=== PATIENT | female | born 1995 | race Caucasian/White ===

== ENCOUNTER 2017-05-12 17:22 | Emergency (ER) | payer BC, MEDICAID ==
[2017-05-12 17:28] VITALS: BP 151/86
--- NOTE | 2017-05-12 18:10 | UC ---
Back Pain HPI - HPI Summary HPI Summary: Low back pain starting yesterday, now feeling up and down her back beside her spine on both sides. For 3-4 days prior to pain had diarrhea that has now resolved, also had nausea yesterday during the day, made herself eat something and then she threw up. This is not typical, though pt had gallbladder out and occasionally gets sick to her stomach when she overeats. Denies fever, urinary sx, blood in stool. - History of Current Complaint Chief Complaint: UCBackPain Stated Complaint: LOWER BACK PAIN Time Seen by Provider: 05/12/17 17:45 Hx Obtained From: Patient Hx Last Menstrual Period: 04/21/17 ?: No Onset/Duration: Gradual Onset, Lasting Days Timing: Constant Severity Initially: Mild Severity Currently: Moderate Back Pain: Is Diffuse Character: Dull, Aching, Stiffness Aggravating: Movement Alleviating: Rest Associated Signs And Symptoms: Negative: Weakness, Numbness, Abdominal Pain, Bladder Incontinence, Bowel Incontinence - Allergies/Home Medications Allergies/Adverse Reactions: Allergies Allergy/AdvReac Type Severity Reaction Status Date / Time Amoxicillin Allergy Unknown Hives Verified 05/12/17 17:28 Home Medications: Home Medications Ibuprofen TAB* [Advil TAB*] 800 mg PO PRN 05/12/17 [History] PMH/Surg Hx/FS Hx/Imm Hx Cardiovascular History: Hypertension GI/ History: Gall Bladder Disease - had GB removed - Surgical History Surgical History: Yes Surgery Procedure, Year, and Place: gallbladder Nov 2014 - Family History Known Family History: Negative: Blood Disorder - Social History Occupation: Employed Full-time Lives: With Family Alcohol Use: Rare Alcohol Amount: on Substance Use Type: None Smoking Status (MU): Never Smoked Tobacco Type: Cigarettes Amount Used/How Often: Smokes couples of time throughout week Have You Smoked in the Last Year: No When Did the Patient Quit Smoking/Using Tobacco: "years ago" - Immunization History Most Recent Influenza Vaccination: 08/2015 Most Recent Tetanus Shot: 08/20/15 Most Recent Pneumonia Vaccination: n/a Review of Systems Constitutional: Negative Skin: Negative Eyes: Negative ENT: Negative Respiratory: Negative Cardiovascular: Negative Gastrointestinal: Vomiting, Diarrhea Genitourinary: Negative Motor: Negative Neurovascular: Negative Musculoskeletal: Myalgia - back pain Neurological: Negative Psychological: Negative All Other Systems Reviewed And Are Negative: Yes Physical Exam Triage Information Reviewed: Yes Appearance: Well-Appearing, No Pain Distress, Obese Vital Signs: Initial Vital Signs Temp 98.2 F 05/12/17 17:25 Pulse 89 05/12/17 17:25 Resp 16 05/12/17 17:25 BP 151/86 05/12/17 17:25 Pulse Ox 100 05/12/17 17:25 Vital Signs Reviewed: Yes Eye Exam: Normal Eyes: Positive: Conjunctiva Clear ENT Exam: Normal ENT: Positive: Normal ENT inspection, Hearing grossly normal, Pharynx normal Dental Exam: Normal Neck exam: Normal Neck: Positive: Supple, Nontender, No Lymphadenopathy Respiratory Exam: Normal Respiratory: Positive: Chest non-tender, Lungs clear, Normal breath sounds, No respiratory distress, No accessory muscle use Cardiovascular Exam: Normal Cardiovascular: Positive: RRR, No Murmur Abdomen Description: Positive: Nontender, No Organomegaly, Soft. Negative: CVA Tenderness (R), CVA Tenderness (L), Distended, Guarding Bowel Sounds: Positive: Present Musculoskeletal Exam: Normal Musculoskeletal: Positive: Strength Intact Neurological Exam: Normal Neurological: Positive: Alert Psychological Exam: Normal Skin Exam: Normal Back Pain Course/Dx - Differential Dx/Diagnosis Provider Diagnoses: muscle strain low and mid back Discharge - Discharge Plan Condition: Stable Disposition: HOME Patient Education Materials: Low Back Strain (ED), Hematuria (ED) Additional Instructions: There were trace blood cells in your urine and a culture has been sent. Since you don't have any traditional UTI symptoms I am not treating you with an antibiotic. Apply warm packs to your sore muscles and take ibuprofen 400-600mg three times per day until your pain improves. If you are not getting better within a week, please see your primary care provider. If you have any sudden worsening, fever, or other new symptom, please return here. Even with trace hematuria it is best to have your primary care provider recheck your urine in 2 weeks to make sure the blood has gone away. This is a common, and usually temporary, finding is many healthy adults and adolescents.
== END 2017-05-12 18:10 | disposition home or self-care (01) ==
LOC: UCEAST 17:22
DX: S39.012A Strain of muscle, fascia and tendon of lower back, initial encounter (principal); S29.012A Strain of muscle and tendon of back wall of thorax, initial encounter; X58.XXXA Exposure to other specified factors, initial encounter; Y93.9 Activity, unspecified; Y92.9 Unspecified place or not applicable; Z32.02 Encounter for pregnancy test, result negative; I10 Essential (primary) hypertension; E66.9 Obesity, unspecified; Z90.49 Acquired absence of other specified parts of digestive tract; Z88.1 Allergy status to other antibiotic agents
CPT/HCPCS: 81003; 84702; 87086; 99211; G0463

== ENCOUNTER 2017-05-16 11:05 | Emergency (ER) | payer BC ==
[2017-05-16] MEDS ORDERED: NS 0.9% 1000 ML* 1,000 ML IV ONE (14:00)
[2017-05-16] MEDS ORDERED: Ketorolac INJ* 30 MG/ML 1 ML VIAL IV ONE (14:00)
[2017-05-16 14:29] LABS: Urine Bacteria Absent (Absent); Urine Bilirubin Negative (Negative); Urine Glucose Negative (Negative); Urine Nitrite Negative (Negative)
--- NOTE | 2017-05-16 14:37 | RAD ---
Indication: Right flank pain. CT of the abdomen and pelvis was performed without oral or IV contrast administration. Coronal and sagittal reconstructed images were obtained. Lung bases demonstrate no pleural fluid, nodules or masses. Heart is of normal size without evidence of pericardial effusion. The liver is normal in size. No focal lesions or intrahepatic ductal dilatation is noted. The patient is status post cholecystectomy. The common duct is not dilated. The pancreas demonstrates no mass or pancreatic duct dilatation. The spleen is normal in size. No adrenal lesions are noted. The kidneys demonstrates no hydronephrosis. No retroperitoneal lymphadenopathy is noted. No dilated loops of bowel are noted. Aorta and vena cava are unremarkable. No evidence of retroperitoneal or pelvic lymphadenopathy is noted. CT of the pelvis demonstrates stool throughout the colon. Normal appendix is noted. No dilated loops of bowel are noted. There is a small to moderate amount of free fluid in the cul-de-sac. The uterus and ovaries are grossly unremarkable. The urinary bladder is unremarkable. IMPRESSION: NO EVIDENCE OF OBSTRUCTIVE UROPATHY IS NOTED. NORMAL APPENDIX. SMALL TO MODERATE AMOUNT OF FREE FLUID IS NOTED IN THE CUL-DE-SAC. PATIENT IS STATUS POST CHOLECYSTECTOMY.
[2017-05-16 14:52] LABS: Hematocrit 41 % (35-47); Hemoglobin 13.5 g/dl (12.0-16.0); Mean Corpuscular HGB Conc 33 g/dl (31-36); Mean Corpuscular Hemoglobin 28 pg (27-31); Mean Corpuscular Volume 86 fL (80-97); Mean Platelet Volume 9 um3 (7.4-10.4); Red Blood Count 4.77 10^6/ul (4.0-5.4); Red Cell Distribution Width 14 % (10.5-15); White Blood Count 8.4 10^3/ul (3.5-10.8)
[2017-05-16 15:05] LABS: ALT 16 U/L (7-52); AST 17 U/L (13-39); Albumin 4.7 g/dL (3.2-5.2); Alkaline Phosphatase 77 U/L (34-104); Anion Gap 7 mmol/L (2-11); BUN/Creatinine Ratio 13.6 (8-20); Blood Urea Nitrogen 9 mg/dL (6-24); C Reactive Protein 3.05 mg/L (< 5.00); CO2 Carbon Dioxide 25 mmol/L (22-32); Calcium 9.6 mg/dL (8.6-10.3); Chloride 106 mmol/L (101-111); EGFR African American 142.7 (>60); Globulin 3.1 g/dL (2-4); Glucose 91 mg/dL (70-100); Lipase 15 U/L (11.0-82.0); Potassium 4.1 mmol/L (3.5-5.0); Sodium 138 mmol/L (133-145); Total Protein 7.8 g/dL (6.4-8.9)
[2017-05-16 16:48] VITALS: BP 133/69
--- NOTE | 2017-05-16 18:55 | ED ---
Cricket Vega Thomas, scribed for Isaiah Wilkins MD on 05/16/17 at 1355 . Back Pain - HPI Summary HPI Summary: The pt is a 21 y/o F presenting to the ED c/o bilateral flank pain (R>L) that began 5 days ago. The pain began with a dull quality but is now characterized as sharp. The pain is is rated 9.5/10 when she breathes but otherwise is 6/10. Her pain is exacerbated with movement and deep breaths. She took ibuprofen 600 mg at 0200 to relieve the pain. She also took Bengay to relieve the pain. She additionally c/o dysuria, "drip-drop" urination, and thick white discharge. She denies a PMHx of kidney stones. PSHx: cholecystectomy. SHx: rare alcohol use, no drug use. FHx: HTN. - History of Current Complaint Chief Complaint: EDBackInjuryPain Stated Complaint: LOWER BACK PAIN-5DAYS Time Seen by Provider: 05/16/17 13:51 Hx Obtained From: Patient Hx Last Menstrual Period: 04/21/17 Onset/Duration: Lasting Days - 5 days, Still Present Timing: Constant Back Pain Location: Is Discrete @ - flank Pain Intensity: 6 Pain Scale Used: 0-10 Numeric Character: Sharp - especially when she breathes, Dull - initially Associated Signs And Symptoms: Positive: Flank Pain, Other - POS: dysuria, "drip -drop" urination, thick white discharge - Allergies/Home Medications Allergies/Adverse Reactions: Allergies Allergy/AdvReac Type Severity Reaction Status Date / Time Amoxicillin Allergy Unknown Hives Verified 05/16/17 11:20 PMH/Surg Hx/FS Hx/Imm Hx Previously Healthy: No Cardiovascular History: Reports: Hx Hypertension - GESTATIONAL, Other Cardiovascular Problems/Disorders - Gestation HTN during delivered in Jul 2014 GI History: Reports: Hx Gall Bladder Disease - Began after , Other GI Disorders - Current gallstone pancreatitis History: Denies: Hx Kidney Stones Musculoskeletal History: Reports: Hx Back Problems - After Jul 2014 Denies: Hx Scoliosis Sensory History: Reports: Hx Contacts or Glasses - Uses glasses when driving Denies: Hx Hearing Aid Opthamlomology History: Reports: Hx Contacts or Glasses - Uses glasses when driving Neurological History: Denies: Hx Headaches, Other Neuro Impairments/Disorders - Surgical History Surgery Procedure, Year, and Place: gallbladder Nov 2014 Infectious Disease History: No Infectious Disease History: Denies: Hx Clostridium Difficile, Hx Hepatitis, Hx Human Immunodeficiency Virus (HIV), Hx of Known/Suspected MRSA, Hx Shingles, Hx Tuberculosis, Hx Known/ Suspected VRE, Hx Known/Suspected VRSA, History Other Infectious Disease, Traveled Outside the [place] in Last 30 Days - Family History Known Family History: Positive: Hypertension Negative: Blood Disorder - Social History Alcohol Use: Rare Alcohol Amount: on Substance Use Type: Reports: None Smoking Status (MU): Never Smoked Tobacco Type: Cigarettes Amount Used/How Often: Smokes couples of time throughout week Have You Smoked in the Last Year: No Review of Systems Constitutional: Negative Negative: Fever Eyes: Negative ENT: Negative Cardiovascular: Negative Respiratory: Negative Gastrointestinal: Negative Genitourinary: Other - POS: "drip-drop" urination Positive: dysuria, discharge - thick white, flank pain - bilat, R>L, at first dull but now sharp, 9.5/10 when breathing but 6/10 baseline Musculoskeletal: Negative Skin: Negative Neurological: Negative Psychological: Normal All Other Systems Reviewed And Are Negative: Yes Physical Exam - Summary Physical Exam Summary: VITAL SIGNS: Reviewed. GENERAL: ~Patient is a well-developed and nourished female who is in the stretcher and in some distress secondary to pain. Patient is not in any acute respiratory distress. HEAD AND FACE: No signs of trauma. ~No ecchymosis, hematomas or skull depressions. No sinus tenderness. EYES: PERRLA, EOMI x 2, No injected conjunctiva, no nystagmus. EARS: Hearing grossly intact. Ear canals and tympanic membranes are within normal limits. MOUTH: Oropharynx within normal limits. NECK: Supple, trachea is midline, no adenopathy, no JVD, no carotid bruit, no c- spine tenderness, neck with full ROM. CHEST: Symmetric, no tenderness at palpation LUNGS: Clear to auscultation bilaterally. No wheezing or crackles. CVS: Regular rate and rhythm, S1 and S2 present, no murmurs or gallops appreciated. ABDOMEN: CVA tenderness. Soft, non-tender. No signs of distention. No rebound no guarding, and no masses palpated. Bowel sounds are normal. EXTREMITIES: FROM in all major joints, no edema, no cyanosis or clubbing. NEURO: Alert and oriented x 3. No acute neurological deficits. Speech is normal and follows commands. SKIN: Dry and warm Triage Information Reviewed: Yes Vital Signs On Initial Exam: Initial Vitals Temp Pulse Resp BP Pulse Ox 99.4 F 96 18 154/95 99 05/16/17 11:20 05/16/17 11:20 05/16/17 11:20 05/16/17 11:20 05/16/17 11:20 Vital Signs Reviewed: Yes Diagnostics - Vital Signs Vital Signs Temp Pulse Resp BP Pulse Ox 05/16/17 11:20 99.4 F 96 18 154/95 99 - Laboratory Lab Results: Lab Results 05/16/17 05/16/17 05/16/17 Range/Units 14:10 14:36 14:36 WBC 8.4 (3.5-10.8) 10^3/ul RBC 4.77 (4.0-5.4) 10^6/ul Hgb 13.5 (12.0-16.0) g/dl Hct 41 (35-47) % MCV 86 (80-97) fL MCH 28 (27-31) pg MCHC 33 (31-36) g/dl RDW 14 (10.5-15) % Plt Count 175 (150-450) 10^3/ul MPV 9 (7.4-10.4) um3 Neut % (Auto) 65.4 (38-83) % Lymph % (Auto) 25.3 (25-47) % Clare % (Auto) 5.5 (1-9) % Eos % (Auto) 3.2 (0-6) % Baso % (Auto) 0.6 (0-2) % Absolute Neuts (auto) 5.5 (1.5-7.7) 10^3/ul Absolute Lymphs (auto) 2.1 (1.0-4.8) 10^3/ul Absolute Monos (auto) 0.5 (0-0.8) 10^3/ul Absolute Eos (auto) 0.3 (0-0.6) 10^3/ul Absolute Basos (auto) 0.1 (0-0.2) 10^3/ul Absolute Nucleated RBC 0 10^3/ul Nucleated RBC % 0 Sodium 138 (133-145) mmol/L Potassium 4.1 (3.5-5.0) mmol/L Chloride 106 (101-111) mmol/L Carbon Dioxide 25 (22-32) mmol/L Anion Gap 7 (2-11) mmol/L BUN 9 (6-24) mg/dL Creatinine 0.66 (0.51-0.95) mg/dL Est GFR ( Amer) 142.7 (>60) Est GFR (Non-Af Amer) 111.0 (>60) BUN/Creatinine Ratio 13.6 (8-20) Glucose 91 (70-100) mg/dL Lactic Acid (0.5-2.0) mmol/L Calcium 9.6 (8.6-10.3) mg/dL Total Bilirubin 0.50 (0.2-1.0) mg/dL AST 17 (13-39) U/L ALT 16 (7-52) U/L Alkaline Phosphatase 77 (34-104) U/L C-Reactive Protein 3.05 (< 5.00) mg/L Total Protein 7.8 (6.4-8.9) g/dL Albumin 4.7 (3.2-5.2) g/dL Globulin 3.1 (2-4) g/dL Albumin/Globulin Ratio 1.5 (1-3) Lipase 15 (11.0-82.0) U/L Beta HCG, Quant < 0.60 mIU/mL Urine Color Yellow Urine Appearance Cloudy Urine pH 5.0 (5-9) Ur Specific [place] 1.026 (1.010-1.030) Urine Protein Negative (Negative) Urine Ketones Negative (Negative) Urine Blood Negative (Negative) Urine Nitrate Negative (Negative) Urine Bilirubin Negative (Negative) Urine Urobilinogen Negative (Negative) Ur Leukocyte Esterase 2+ H (Negative) Urine WBC (Auto) Trace(0-5/hpf) (Absent) Urine RBC (Auto) Absent (Absent) Ur Squamous Epith Cells Present H (Absent) Urine Bacteria Absent (Absent) Urine Glucose Negative (Negative) Urine Ascorbic Acid * H (Negative) 05/16/17 Range/Units 14:36 WBC (3.5-10.8) 10^3/ul RBC (4.0-5.4) 10^6/ul Hgb (12.0-16.0) g/dl Hct (35-47) % MCV (80-97) fL MCH (27-31) pg MCHC (31-36) g/dl RDW (10.5-15) % Plt Count (150-450) 10^3/ul MPV (7.4-10.4) um3 Neut % (Auto) (38-83) % Lymph % (Auto) (25-47) % Clare % (Auto) (1-9) % Eos % (Auto) (0-6) % Baso % (Auto) (0-2) % Absolute Neuts (auto) (1.5-7.7) 10^3/ul Absolute Lymphs (auto) (1.0-4.8) 10^3/ul Absolute Monos (auto) (0-0.8) 10^3/ul Absolute Eos (auto) (0-0.6) 10^3/ul Absolute Basos (auto) (0-0.2) 10^3/ul Absolute Nucleated RBC 10^3/ul Nucleated RBC % Sodium (133-145) mmol/L Potassium (3.5-5.0) mmol/L Chloride (101-111) mmol/L Carbon Dioxide (22-32) mmol/L Anion Gap (2-11) mmol/L BUN (6-24) mg/dL Creatinine (0.51-0.95) mg/dL Est GFR ( Amer) (>60) Est GFR (Non-Af Amer) (>60) BUN/Creatinine Ratio (8-20) Glucose (70-100) mg/dL Lactic Acid 0.6 (0.5-2.0) mmol/L Calcium (8.6-10.3) mg/dL Total Bilirubin (0.2-1.0) mg/dL AST (13-39) U/L ALT (7-52) U/L Alkaline Phosphatase (34-104) U/L C-Reactive Protein (< 5.00) mg/L Total Protein (6.4-8.9) g/dL Albumin (3.2-5.2) g/dL Globulin (2-4) g/dL Albumin/Globulin Ratio (1-3) Lipase (11.0-82.0) U/L Beta HCG, Quant mIU/mL Urine Color Urine Appearance Urine pH (5-9) Ur Specific [place] (1.010-1.030) Urine Protein (Negative) Urine Ketones (Negative) Urine Blood (Negative) Urine Nitrate (Negative) Urine Bilirubin (Negative) Urine Urobilinogen (Negative) Ur Leukocyte Esterase (Negative) Urine WBC (Auto) (Absent) Urine RBC (Auto) (Absent) Ur Squamous Epith Cells (Absent) Urine Bacteria (Absent) Urine Glucose (Negative) Urine Ascorbic Acid (Negative) Result Diagrams: 05/16/17 14:36 05/16/17 14:36 Lab Statement: Any lab studies that have been ordered have been reviewed, and results considered in the medical decision making process. - CT CT Abd/Pel CT Interpretation: No Acute Changes - NO EVIDENCE OF OBSTRUCTIVE UROPATHY IS NOTED. NORMAL APPENDIX. SMALL TO MODERATE AMOUNT OF FREE FLUID IS NOTED IN THE CUL-DE-SAC. PATIENT IS STATUS POST CHOLECYSTECTOMY. CT Interpretation Completed By: Radiologist Back Pain Course/Dx - Course Assessment/Plan: The pt is a 21 y/o F presenting to the ED c/o bilateral flank pain (R>L) that began 5 days ago. The pain began with a dull quality but is now characterized as sharp. The pain is is rated 9.5/10 when she breathes but otherwise is 6/10. Her pain is exacerbated with movement and deep breaths. She took ibuprofen 600 mg at 0200 to relieve the pain. She also took Bengay to relieve the pain. She additionally c/o dysuria, "drip-drop" urination, and thick white discharge. She denies a PMHx of kidney stones. PSHx: cholecystectomy. SHx: rare alcohol use, no drug use. FHx: HTN. Test results are within normal limits. UA was contaminated. CT Abd/Pel revealed NO EVIDENCE OF OBSTRUCTIVE UROPATHY IS NOTED. NORMAL APPENDIX. SMALL TO MODERATE AMOUNT OF FREE FLUID IS NOTED IN THE CUL-DE-SAC. PATIENT IS STATUS POST CHOLECYSTECTOMY.. In the ED course, the pt was given IV fluids and toradol for the pain. After these meds were given, the symptoms resolved. The patient was offered a pelvic exam, but she states that because she reports to vaginal discharge or bleeding, she will decline the pelvic exam. Therefore, we will send the urine for culture and discharge with follow-up with PCP. I suspect the pain is coming from the back. The patient was therefore given naproxen and robaxin for the pain. I discussed all the findings and test results with the patient. Patient was instructed to return to the emergency room immediately if any of the symptoms return or worsens. They were explained the possibility of an early abdominal pathology which was not detected at this time despite the physical exam and testing. They understand and agree. Abdominal exam before discharge: Soft, NT. No signs of distention. BS present. No rebound no guarding , and no masses palpated. Patient is alert and oriented and hemodynamically stable. Patient is to follow up with primary care physician in the next 2 to 3 days. Patient agree and understands. - Diagnoses Differential Diagnosis/HQI/PQRI: Positive: Fracture, Renal Colic, Strain, Sprain Provider Diagnoses: Back pain Discharge - Discharge Plan Condition: Stable Disposition: HOME Prescriptions: Methocarbamol [Robaxin-750 MG TAB] 750 mg PO TID #12 tab Naproxen TAB* [Naprosyn 250 mg TAB*] 500 mg PO Q8H PRN #20 tab PRN Reason: Pain Patient Education Materials: Back Pain (ED) Referrals: [facility] [place] PHYSICIAN REFERRAL [Outside] - 3 Days The documentation as recorded by the Cricket tomlinson Thomas accurately reflects the service I personally performed and the decisions made by me, Isaiah Wilkins MD.
--- NOTE | 2017-05-18 09:32 | ED ---
Progress - Progress Note Progress Note: Pt's urine cx reveals 10-25,000 enterococcus faecalis (mild UTI). Will await sens - no tx at this time. Course/Dx - Diagnoses Provider Diagnoses: Back pain
--- NOTE | 2017-05-19 14:29 | PN ---
Progress Note - Progress Note Date of Service: 05/16/17 Note: Urine preliminary did show 10-25,000 of growth however final urine culture results came back mixed lorie, possible contamination. suggest resubmission. Was not given antbiotics at discharge. Called and spoke with at 2:28pm today and patient states symptoms have completely improved and she is feeling much better. No need for further change or action at this time.
== END 2017-05-16 16:46 | disposition home or self-care (01) ==
LOC: ED 11:05
DX: M54.9 Dorsalgia, unspecified (principal); R10.84 Generalized abdominal pain; R30.0 Dysuria
CPT/HCPCS: 36415; 74176; 80053; 81003; 81015; 83605; 83690; 84702; 85025; 86140; 87086; 96374; 99283; J1885

== ENCOUNTER 2017-07-01 09:39 | Emergency (ER) | payer BC ==
--- NOTE | 2017-07-01 12:40 | ED ---
Cricket Vega Thomas, scribed for Layla Trejo MD on 07/01/17 at 1154 . Skin Complaint - HPI Summary HPI Summary: The pt is a 22 y/o F presenting to the ED c/o an abscess on her right buttock that she first noticed 5 days ago. The pt rates the pain 8/10. The pain is aggravated by pressure and alleviated by nothing. 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 The cyst has grown in the last 5 days. She was evaluated at [facility] urgent care 3 days ago, where she was prescribed Bactrim. She is on her 3rd day of Bactrim. Pt additionally c/o fever (100.9). Pt denies drainage. PMHx: HTN. PSHx: cholecystectomy. SHx: no smoking, no alcohol use, no illicit drug use. She is accompanied by her mother in the examination room. - History of Current Complaint Chief Complaint: EDRashSkinAbscess Time Seen by Provider: 07/01/17 11:13 Stated Complaint: POSS INFECTION ON RT BUTT CHEEK Hx Obtained From: Patient, Family/Arranger Assembler - mother present Hx Last Menstrual Period: 04/21/17 Onset/Duration: Started Days Ago - 5, Still Present, Worse Since - 3 days ago Timing: Constant Pain Intensity: 8 Pain Scale Used: 0-10 Numeric Skin Location: Other: - right buttock Aggravating Symptom(s): Other: - POS: pressure Alleviating Symptom(s): Nothing Associated Signs & Symptoms: Negative - for drainage, Fever - 100.9 - Allergy/Home Medications Allergies/Adverse Reactions: Allergies Allergy/AdvReac Type Severity Reaction Status Date / Time Amoxicillin Allergy Unknown Hives Verified 05/16/17 11:20 PMH/Surg Hx/FS Hx/Imm Hx Previously Healthy: No Cardiovascular History: Reports: Hx Hypertension - GESTATIONAL, Other Cardiovascular Problems/Disorders - Gestation HTN during delivered in Jul 2014 GI History: Reports: Hx Gall Bladder Disease - Began after , Other GI Disorders - Current gallstone pancreatitis History: Denies: Hx Kidney Stones Musculoskeletal History: Reports: Hx Back Problems - After Jul 2014 Denies: Hx Scoliosis Sensory History: Reports: Hx Contacts or Glasses - Uses glasses when driving Denies: Hx Hearing Aid Opthamlomology History: Reports: Hx Contacts or Glasses - Uses glasses when driving Neurological History: Denies: Hx Headaches, Other Neuro Impairments/Disorders - Surgical History Surgery Procedure, Year, and Place: gallbladder Nov 2014 Infectious Disease History: Denies: Hx Clostridium Difficile, Hx Hepatitis, Hx Human Immunodeficiency Virus (HIV), Hx of Known/Suspected MRSA, Hx Shingles, Hx Tuberculosis, Hx Known/ Suspected VRE, Hx Known/Suspected VRSA, History Other Infectious Disease, Traveled Outside the [place] in Last 30 Days - Family History Known Family History: Positive: Hypertension Negative: Blood Disorder - Social History Alcohol Use: None Alcohol Amount: on Substance Use Type: Reports: None Smoking Status (MU): Never Smoked Tobacco Type: Cigarettes Amount Used/How Often: Smokes couples of time throughout week Have You Smoked in the Last Year: No Review of Systems Positive: Fever - 100.9 Positive: Other - POS: abscess on R buttock; NEG: drainage All Other Systems Reviewed And Are Negative: Yes Physical Exam Triage Information Reviewed: Yes Vital Signs On Initial Exam: Initial Vitals Temp Pulse Resp BP Pulse Ox 99.5 F 98 15 151/82 100 07/01/17 10:07/01/17 10:02 07/01/17 10:02 07/01/17 10:02 07/01/17 10:02 Vital Signs Reviewed: Yes Appearance: Positive: Well-Appearing, No Pain Distress Skin: Positive: Warm, Skin Color Reflects Adequate Perfusion, Dry, Other - There is a pilonidal cyst 2cm in circumference on the right side just towards the right buttock. Eyes: Positive: EOMI, LENORA ENT: Positive: Pharynx normal, TMs normal Neck: Positive: Supple, Nontender Respiratory/Lung Sounds: Positive: Clear to Auscultation, Breath Sounds Present. Negative: Rales, Rhonchi, Wheezes Cardiovascular: Positive: RRR. Negative: Murmur, Rub, Other - NEG: gallop Abdomen Description: Positive: Nontender, Soft. Negative: Distended, Guarding, Other: - NEG: rebound Bowel Sounds: Positive: Present Musculoskeletal: Positive: Strength/ROM Intact. Negative: Edema Left, Edema Right Neurological: Positive: Sensory/Motor Intact, Alert, Oriented to Person Place, Time, CN Intact II-III Psychiatric: Positive: Affect/Mood Appropriate Procedures - Incision and Drainage Site: Right buttock Anesthesia: Topical Instrument(s): Scalpel Packing: Gauze - ended up making 2 2cm incision no pus no drainage. Diagnostics - Vital Signs Vital Signs Temp Pulse Resp BP Pulse Ox 07/01/17 11:08 99.5 F 98 15 151/82 99 07/01/17 10:02 99.5 F 98 15 151/82 100 - Laboratory Lab Statement: Any lab studies that have been ordered have been reviewed, and results considered in the medical decision making process. Course/Dx - Course Course Of Treatment: pilonidal cyst that must have been too early for I&D ended up making two small insicions no pus pocket pt advised that their are 2 likely further scenarios with her cont'd sitz baths and bactrim antibiotics 1) acscess will clear 2) abscess will continue to ripen and either rupture or be ready for and I and D pt was given followup with the surgeons for further care. she is going out of town for the weekend, and knows that she can go to any ED to have it I and D'd if it becomes a problem Assessment/Plan: The patient complains of an abscess on her right buttock that she first noticed 5 days ago. She denies drainage, and this was evaluated at [facility] 3 days ago. In the ED course an incision and drainage was performed. Patient is diagnosed with pilonidal cyst. Patient will be discharged home with follow up by PCP. Patient is agreeable to this plan. - Diagnoses Provider Diagnoses: Pilonidal cyst Discharge - Discharge Plan Condition: Stable Disposition: HOME Patient Education Materials: Pilonidal Cyst (ED) Referrals: [facility] [place] PHYSICIAN REFERRAL [Outside] - 3 Days The documentation as recorded by the Cricket tomlinson Thomas accurately reflects the service I personally performed and the decisions made by me, Layla Trejo MD.
[2017-07-01 13:05] VITALS: BP 132/69
== END 2017-07-01 13:05 | disposition home or self-care (01) ==
LOC: ED 09:39
DX: L05.91 Pilonidal cyst without abscess (principal); Z88.0 Allergy status to penicillin
CPT/HCPCS: 10080; 99282

== ENCOUNTER 2017-07-02 14:10 | Emergency (ER) | payer BC ==
[2017-07-02 15:04] LABS: Hematocrit 38 % (35-47); Hemoglobin 12.8 g/dl (12.0-16.0); Mean Corpuscular HGB Conc 34 g/dl (31-36); Mean Corpuscular Hemoglobin 28 pg (27-31); Mean Corpuscular Volume 82 fL (80-97); Mean Platelet Volume 9 um3 (7.4-10.4); Red Blood Count 4.64 10^6/ul (4.0-5.4); Red Cell Distribution Width 13 % (10.5-15); White Blood Count 10.4 10^3/ul (3.5-10.8)
[2017-07-02] MEDS ORDERED: Clindamycin 900 MG IVPREMIX(* 900 MG/50 ML SDV IV ONE (15:15)
[2017-07-02] MEDS ORDERED: Ketorolac INJ* 30 MG/ML 1 ML VIAL IV PUSH ONE (15:16)
[2017-07-02] MEDS ORDERED: Ondansetron INJ* 2 MG/ML VIAL IV ONE (15:16)
[2017-07-02 15:19] LABS: Albumin 4.4 g/dL (3.2-5.2); BUN/Creatinine Ratio 11.6 (8-20); EGFR African American 104.3 (>60); EGFR Non-African American 81.1 (>60); Globulin 3.3 g/dL (2-4); Potassium 4.1 mmol/L (3.5-5.0); Total Bilirubin 0.7 mg/dL (0.2-1.0); Total Protein 7.7 g/dL (6.4-8.9)
[2017-07-02 15:23] LABS: Urine Bacteria Absent (Absent); Urine Bilirubin Negative (Negative); Urine Glucose Negative (Negative); Urine Nitrite Negative (Negative)
[2017-07-02] MEDS ORDERED: NS 0.9% 1000 ML* 2,000 ML IV ONE (15:27)
--- NOTE | 2017-07-02 16:10 | RAD ---
Indication: Shortness of breath. 2 views of the chest including dual energy PA views demonstrate no mediastinal shift. Heart is of normal size and configuration. Lungs are clear. No changes noted since December 12, 2011. IMPRESSION: No active cardiopulmonary disease is identified.
[2017-07-02] MEDS ORDERED: Iohexol 350* (CONTRAST) 500 ML MDV IV ONE (17:07)
--- NOTE | 2017-07-02 17:24 | RAD ---
Indication: Fever, shortness of breath. Contrast: Administered 86.0 ml of OMNIPAQUE 350 mg/ml CTA of the chest was performed after IV contrast administration. Coronal and sagittal reconstructed images were obtained. Inferior thyroid lobes are unremarkable. The point arterial tree is adequately opacified. No definite filling defect is noted to suggest pulmonary embolus. Aorta demonstrates no evidence of aortic dissection or aneurysmal dilatation. The trachea and major bronchi appear patent. The lung pantoja demonstrate dependent changes with no evidence of alveolar consolidation. The visualized bony structures are unremarkable. The abdominal organs are grossly unremarkable. IMPRESSION: No definite pulmonary embolus is noted. No definite aortic dissection is noted.
[2017-07-02 18:01] VITALS: BP 111/46
--- NOTE | 2017-07-05 09:18 | PN ---
Progress Note - Progress Note Date of Service: 07/02/17 Note: wound final culture results obtained. 1+ of normal lorie grew, no other organisms seen. patient was given clindamycin for pilonidal abscess at d/c. no further changes needed at this time.
--- NOTE | 2017-07-11 12:05 | ED ---
Cricket Vega Thomas, scribed for Shai Landry MD on 07/02/17 at 1444 . Skin Complaint - HPI Summary HPI Summary: The pt is a 22 y/o F presenting to the ED c/o fever at 104.5 with a pilonidal cyst that appeared five days ago. It was lanced by Dr. Trejo yesterday but was unable to be drained, so Dr. Trejo advised that she follow up with surgery. The patient saw Dr. Sharma this AM and her cyst was successfully drained and packed. She is also on Day 4 of a course of antibiotics initially prescribed four days ago [place] [facility] She has not recently taken an antipyretic. She rates her pain level 2/10. The pain is aggravated and alleviated by nothing. The patient has treated the pain with pain medication prior to arrival including [place], which has relieved pain. Pt additionally c/o dizziness, feelings of illness, SOB (onset yesterday, none in the ED and only when standing ), weakness, and nausea. Pt denies cough, vomiting, sore throat, CP, dysuria, and hematuria. She denies any chronic anxiety. LNMP 06/21/17. She had a pilonidal cyst 5 years ago. She reports that Dr. Sharma advised against any surgeries in the near term. There is not a FHx of blood clots. - History of Current Complaint Chief Complaint: EDGeneral Stated Complaint: FEVER,PAIN,SOB Hx Obtained From: Patient, Family/Business Mgr - mother in room Hx Last Menstrual Period: 04/21/17 Onset/Duration: Started Days Ago - 5, Still Present, Worse Since - this AM Timing: Constant Pain Intensity: 2 Pain Scale Used: 0-10 Numeric Skin Location: Other: - Pilonidal cyst Aggravating Symptom(s): Nothing Alleviating Symptom(s): Nothing Associated Signs & Symptoms: Nausea, Weakness, Fever - 104.5, Lightheadedness Related History: Other: - Lanced yesterday and drained today - Allergy/Home Medications Allergies/Adverse Reactions: Allergies Allergy/AdvReac Type Severity Reaction Status Date / Time Amoxicillin Allergy Unknown Hives Verified 05/16/17 11:20 PMH/Surg Hx/FS Hx/Imm Hx Previously Healthy: No Cardiovascular History: Reports: Hx Hypertension - GESTATIONAL, Other Cardiovascular Problems/Disorders - Gestation HTN during delivered in Jul 2014 GI History: Reports: Hx Gall Bladder Disease - Began after , Other GI Disorders - Current gallstone pancreatitis History: Denies: Hx Kidney Stones Musculoskeletal History: Reports: Hx Back Problems - After Jul 2014 Denies: Hx Scoliosis Sensory History: Reports: Hx Contacts or Glasses - Uses glasses when driving Denies: Hx Hearing Aid Opthamlomology History: Reports: Hx Contacts or Glasses - Uses glasses when driving Neurological History: Denies: Hx Headaches, Other Neuro Impairments/Disorders - Surgical History Surgery Procedure, Year, and Place: gallbladder Nov 2014 Infectious Disease History: Denies: Hx Clostridium Difficile, Hx Hepatitis, Hx Human Immunodeficiency Virus (HIV), Hx of Known/Suspected MRSA, Hx Shingles, Hx Tuberculosis, Hx Known/ Suspected VRE, Hx Known/Suspected VRSA, History Other Infectious Disease, Traveled Outside the [place] in Last 30 Days - Family History Known Family History: Positive: Hypertension Negative: Blood Disorder, Other - NEG: blood clots - Social History Alcohol Use: None Alcohol Amount: on Substance Use Type: Reports: None Smoking Status (MU): Never Smoked Tobacco Type: Cigarettes Amount Used/How Often: Smokes couples of time throughout week Have You Smoked in the Last Year: No Review of Systems Positive: Fever - Tmax 104.5, Other - POS: feelings of illness. Negative: Chills Negative: Erythema - eyes Negative: Sore Throat Negative: Chest Pain Positive: Shortness Of Breath - onset yesterday, none in the ED and only when she stands. Negative: Cough Positive: Nausea. Negative: Abdominal Pain, Vomiting Negative: dysuria, hematuria Negative: Myalgia, Edema - leg Negative: Rash Neurological: Other - NEG: dizziness Positive: Weakness All Other Systems Reviewed And Are Negative: Yes Physical Exam - Summary Physical Exam Summary: Constitutional: Well-developed, Well-nourished, Alert. (-) Distressed Skin: Warm, Dry HENT: Normocephalic; Atraumatic Eyes: Conjunctiva normal Neck: Musculoskeletal ROM normal neck. (-) JVD, (-) Stridor, (-) Tracheal deviation Cardio: Rhythm regular, rate normal, Heart sounds normal; Intact distal pulses; The pedal pulses are 2+ and symmetric. Radial pulses are 2+ and symmetric. (-) Murmur Pulmonary/Chest wall: Effort normal. (-) Respiratory distress, (-) Wheezes, (-) Rales Abd: Soft, (-) Tenderness, (-) Distension, (-) Guarding, (-) Rebound Musculoskeletal: (-) Edema Lymph: (-) Cervical adenopathy Neuro: Alert, Oriented x3 Psych: Mood and affect Normal She has a pilonidal cyst status post incision and drainage. There is minimal induration at its superior aspect. Triage Information Reviewed: Yes Vital Signs On Initial Exam: Initial Vitals Temp Pulse Resp BP Pulse Ox 104.5 F 127 20 153/76 97 07/02/17 14:17 07/02/17 14:17 07/02/17 14:17 07/02/17 14:17 07/02/17 14:17 Vital Signs Reviewed: Yes Diagnostics - Vital Signs Vital Signs Temp Pulse Resp BP Pulse Ox 07/02/17 14:17 104.5 F 127 20 153/76 97 - Laboratory Result Diagrams: 07/02/17 14:47 07/02/17 14:47 Lab Statement: Any lab studies that have been ordered have been reviewed, and results considered in the medical decision making process. - Radiology CXR Xray Interpretation: No Acute Changes - CXR reveals no active cardiopulmonary disease is noted. ED physician has reviewed this radiology report and agrees. Radiology Interpretation Completed By: Radiologist - CT CTA Chest CT Interpretation: No Acute Changes - CTA Chest reveals No definite pulmonary embolus is noted. No definite aortic dissection is noted. ED physician has read this report and agrees. CT Interpretation Completed By: Radiologist Course/Dx - Course Assessment/Plan: The pt is a 22 y/o F presenting to the ED c/o fever at 104.5 with a pilonidal cyst that appeared five days ago. It was lanced by Dr. Trejo yesterday but was unable to be drained, so Dr. Trejo advised that she follow up with surgery. The patient saw Dr. Sharma this AM and her cyst was successfully drained and packed. She is also on Day 4 of a course of antibiotics initially prescribed four days ago at [facility] [place]. She has not recently taken an antipyretic. Pt additionally c/o dizziness, feelings of illness, SOB ( onset yesterday, none in the ED and only when standing), weakness, and nausea. She had a pilonidal cyst 5 years ago. She reports that Dr. Sharma advised against any surgeries in the near term. There is not a FHx of blood clots. In the ED course she was given Clindamycin, Toradol, IV fluids, and Zofran. Bloodwork shows absolute neuts 8.9 and D-Dimer 408. UA shows 3+ leukocyte esterase, present squamous epithelial cells. CXR reveals no active cardiopulmonary disease is noted. ED physician has reviewed this radiology report and agrees. CTA Chest reveals No definite pulmonary embolus is noted. No definite aortic dissection is noted. ED physician has read this report and agrees. Patient is diagnosed with pilonidal abscess. Patient will be discharged home with follow up by [facility] in 2-3 days. She was given a work note. Patient is agreeable to this plan. - Diagnoses Provider Diagnoses: Pilonidal abscess - Physician Notifications Discussed Care Of Patient With: Siddhartha Albarado Time Discussed With Above Provider: 16:42 Instructed by Provider To: Other - I consulted with Dr. Albarado, surgery, regarding patient care. He says that if the patient is feeling better and cultures are obtained of blood and the wound, she should return if the blood cultures are positive. Discharge - Discharge Plan Condition: Stable Disposition: HOME Prescriptions: Clindamycin HCl [Clindamycin 150 MG CAP*] 300 mg PO QID #40 cap Patient Education Materials: Pilonidal Cyst (ED) Referrals: Siddhartha Albarado MD [Medical Doctor] - 3 Days Additional Instructions: RETURN TO THE EMERGENCY DEPARTMENT FOR CHANGING OR WORSENING SYMPTOMS The documentation as recorded by the Cricket tomlinson Thomas accurately reflects the service I personally performed and the decisions made by , Shai Landry MD.
== END 2017-07-02 18:00 | disposition home or self-care (01) ==
LOC: ED 14:10
DX: L05.01 Pilonidal cyst with abscess (principal); F17.210 Nicotine dependence, cigarettes, uncomplicated; Z88.0 Allergy status to penicillin
CPT/HCPCS: 36415; 71020; 71275; 80053; 81003; 81015; 83605; 85025; 85379; 85610; 85730; 87040; 87070; 87077; 87086; 87205; 96360; 96374; 96375; 99283; J1885; J2405; Q9967

== ENCOUNTER 2017-09-29 23:46 | Emergency (ER) | payer BC, MEDICAID ==
--- NOTE | 2017-09-30 01:46 | ED ---
Lower Extremity - HPI Summary HPI Summary: Patient presents with right swelling to the lateral ankle after rolling the ankle in a pothole. She denies any other pain or symptoms. Denies LOC. Swelling and ecchymosis to the lateral ankle. Denies fevers, sweats, chills, diaphoresis. Denies temperature, color changes or numbness or tingling. She is otherwise healthy. Denies previous injury to the ankle Denies pain in the toes or lower extremity and knee. Pain is discretely located over the lateral side. Ambulating, but with pain. - History of Current Complaint Chief Complaint: EDExtremityLower Stated Complaint: FALL, RIGHT FOOT INJURY Time Seen by Provider: 09/30/17 01:14 Hx Obtained From: Patient Hx Last Menstrual Period: 04/21/17 Mechanism Of Injury: Twisted Onset of Pain: Immediate Onset/Duration: Hours Severity Initially: Moderate Severity Currently: Moderate Pain Intensity: 3 Pain Scale Used: 0-10 Numeric Timing: Constant Location: Is Discrete @ - right lateral ankle Associated Signs And Symptoms: Positive: Swelling, Bruising Aggravating Factor(s): Standing, Ambulation Alleviating Factor(s): Rest Able to Bear Weight: No - Risk Factors Gout Risk Factors: Negative DVT Risk Factors: Negative Septic Arthritis Risk Factor: Negative - Allergies/Home Medications Allergies/Adverse Reactions: Allergies Allergy/AdvReac Type Severity Reaction Status Date / Time Amoxicillin Allergy Unknown Hives Verified 05/16/17 11:20 PMH/Surg Hx/FS Hx/Imm Hx Previously Healthy: Yes Cardiovascular History: Reports: Hx Hypertension - GESTATIONAL, Other Cardiovascular Problems/Disorders - Gestation HTN during delivered in Jul 2014 GI History: Reports: Hx Gall Bladder Disease - Began after , Other GI Disorders - Current gallstone pancreatitis History: Denies: Hx Kidney Stones Musculoskeletal History: Reports: Hx Back Problems - After Jul 2014 Denies: Hx Scoliosis Sensory History: Reports: Hx Contacts or Glasses - Uses glasses when driving Denies: Hx Hearing Aid Opthamlomology History: Reports: Hx Contacts or Glasses - Uses glasses when driving Neurological History: Denies: Hx Headaches, Other Neuro Impairments/Disorders - Surgical History Surgery Procedure, Year, and Place: gallbladder Nov 2014 - Immunization History Hx Pertussis Vaccination: No Immunizations Up to Date: Unable to Obtain/Confirm Infectious Disease History: No Infectious Disease History: Denies: Hx Clostridium Difficile, Hx Hepatitis, Hx Human Immunodeficiency Virus (HIV), Hx of Known/Suspected MRSA, Hx Shingles, Hx Tuberculosis, Hx Known/ Suspected VRE, Hx Known/Suspected VRSA, History Other Infectious Disease, Traveled Outside the [place] in Last 30 Days - Family History Known Family History: Positive: Hypertension Negative: Blood Disorder, Other - NEG: blood clots - Social History Occupation: Employed Full-time Lives: With Family Alcohol Use: None Alcohol Amount: on Hx Substance Use: No Substance Use Type: Reports: None Hx Tobacco Use: No Smoking Status (MU): Never Smoked Tobacco Type: Cigarettes Amount Used/How Often: Smokes couples of time throughout week Have You Smoked in the Last Year: No Review of Systems Constitutional: Negative Negative: Fever, Chills, Fatigue, Skin Diaphoresis Eyes: Negative Cardiovascular: Negative Respiratory: Negative Genitourinary: Negative Positive: no symptoms reported, see HPI Positive: Arthralgia Positive: Bruising - ecchymosis Neurological: Negative All Other Systems Reviewed And Are Negative: Yes Physical Exam - Summary Physical Exam Summary: Thorough physical exam was performed, focusing on ankle special tests. Pain on palpation over lateral aspect and superior aspect of ankle over ATFL and deltoid ligaments. No pain on palpation over medial side. Due to patient pain around injury, physical exam was limited. Unable to perform anterior drawer test or talar tilt test d/t pain. Reyes test negative. Limited ROM. Dorsiflexion, great toe extension and plantar flexion intact however limited. No pain on palpation over medial or lateral lower extremity. No pain with knee flexion. Pulses intact bilaterally. No temperature change or pallor noted bilaterally. Ecchymosis and swelling noted on lateral aspect. No lesion or disruption of skin is seen. Able to bear weight. Triage Information Reviewed: Yes Vital Signs On Initial Exam: Initial Vitals Temp Pulse Resp BP Pulse Ox 97.9 F 87 18 185/81 100 09/29/17 23:52 09/29/17 23:52 09/29/17 23:52 09/29/17 23:52 09/29/17 23:52 Vital Signs Reviewed: Yes Appearance: Positive: Well-Appearing, Well-Nourished Skin: Positive: Warm, Skin Color Reflects Adequate Perfusion Head/Face: Positive: Normal Head/Face Inspection Eyes: Positive: EOMI, LENORA, Conjunctiva Clear Neck: Positive: Supple, No Lymphadenopathy Respiratory/Lung Sounds: Positive: Clear to Auscultation, Breath Sounds Present Cardiovascular: Positive: Normal, Pulses are Symmetrical in both Upper and Lower Extremities Musculoskeletal: Positive: Pain @ - right lateral ankle on palpation Neurological: Positive: Speech Normal Psychiatric: Positive: Normal AVPU Assessment: Alert - Ricki Coma Scale Coma Scale Total: 15 Diagnostics - Vital Signs Vital Signs Temp Pulse Resp BP Pulse Ox 09/29/17 23:52 97.9 F 87 18 185/81 100 - Laboratory Lab Statement: Any lab studies that have been ordered have been reviewed, and results considered in the medical decision making process. Lower Extremity Course/Dx - Course Course Of Treatment: Based on [facility]eller Ankle Rules, patient sent to imaging. Xray negative for fracture or other acute findings. Soft tissue swelling noted over the lateral aspect of the ankle. Medial and lateral distal lower extremity without pain and x-rays show no widening of the ankle joint regarding low suspicion for Maisonneuve fx. Ankle was sandhya wrapped to patient comfort to allow for immobilization for this period of time. Patient given orthopedic follow up in 5-7 days. Encouraged Ibuprofen 600mg three times daily with meals for pain. Return precautions given. Educated patient regarding ankle injuries and healing time and the possibility of further evaluation and imaging as orthopedist sees fit. - Diagnoses Differential Diagnosis/HQI/PQRI: Positive: Fracture (Closed), Fracture (Open), Sprain, Strain Provider Diagnoses: Right ankle sprain Discharge - Discharge Plan Condition: Stable Disposition: HOME Patient Education Materials: Ankle Sprain (ED) Referrals: No Primary Care Phys,NOPCP [Primary Care Provider] - Additional Instructions: Ibuprofen 600mg three times daily for pain and inflammation Ice whenever possible Elevate Rest
[2017-09-30 01:53] VITALS: BP 133/68
--- NOTE | 2017-09-30 08:01 | RAD ---
Indication: Right ankle pain. 3 views of the right ankle demonstrate soft tissue swelling laterally. Ankle mortise is intact. No other bone or joint abnormality is noted. IMPRESSION: Soft tissue swelling laterally without evidence of fracture.
== END 2017-09-30 01:45 | disposition home or self-care (01) ==
LOC: ED 23:46
DX: S93.401A Sprain of unspecified ligament of right ankle, initial encounter (principal); W19.XXXA Unspecified fall, initial encounter; Y93.9 Activity, unspecified; Y92.9 Unspecified place or not applicable
CPT/HCPCS: 99281

== ENCOUNTER 2017-12-16 11:21 | Emergency (ER) | payer MEDICAID ==
--- NOTE | 2017-12-16 13:07 | UC ---
Respiratory Complaint HPI - HPI Summary HPI Summary: 2 days of cough and fever now feels like chest cold and sore throat---concerned because she works in a [employer] office - History of Current Complaint Chief Complaint: UCRespiratory Stated Complaint: FEVER CONGESTION NAUSEA Time Seen by Provider: 12/16/17 13:01 Hx Obtained From: Patient Hx Last Menstrual Period: 12/07/17 ?: No Onset/Duration: Sudden Onset, Lasting Days - 3, Still Present Timing: Constant Severity Initially: Moderate Severity Currently: Moderate Pain Intensity: 3 Pain Scale Used: 0-10 Numeric Character: Cough: Nonproductive Aggravating Factors: Nothing Alleviating Factors: Nothing Associated Signs And Symptoms: Positive: Fever, URI, Nasal Congestion - Allergies/Home Medications Allergies/Adverse Reactions: Allergies Allergy/AdvReac Type Severity Reaction Status Date / Time MS Amoxicillin [Amoxicillin] Allergy Unknown Hives Verified 12/16/17 11:37 PMH/Surg Hx/FS Hx/Imm Hx Previously Healthy: Yes - Surgical History Surgical History: Yes Surgery Procedure, Year, and Place: gallbladder Nov 2014 - Family History Known Family History: Positive: Hypertension Negative: Blood Disorder, Other - NEG: blood clots - Social History Occupation: Employed Full-time Lives: With Family Alcohol Use: None Alcohol Amount: on Substance Use Type: None Smoking Status (MU): Never Smoked Tobacco Type: Cigarettes Amount Used/How Often: Smokes couples of time throughout week Have You Smoked in the Last Year: No When Did the Patient Quit Smoking/Using Tobacco: "years ago" Household Exposure Type: Cigarettes - Immunization History Most Recent Influenza Vaccination: 08/2015 Most Recent Tetanus Shot: 08/20/15 Most Recent Pneumonia Vaccination: n/a Review of Systems Constitutional: Fever, Chills, Fatigue Skin: Negative Eyes: Negative ENT: Sore Throat Respiratory: Cough Cardiovascular: Negative Gastrointestinal: Negative Genitourinary: Negative Motor: Negative Neurovascular: Negative Musculoskeletal: Negative Neurological: Negative Psychological: Negative Is Patient Immunocompromised?: No All Other Systems Reviewed And Are Negative: Yes Physical Exam Triage Information Reviewed: Yes Appearance: Well-Appearing, No Pain Distress, Well-Nourished Vital Signs: Initial Vital Signs Temp 98.6 F 12/16/17 11:31 Pulse 99 12/16/17 11:31 Resp 16 12/16/17 11:31 BP 149/90 12/16/17 11:31 Pulse Ox 99 02/15/18 11:31 Vital Signs Reviewed: Yes Eye Exam: Normal Eyes: Positive: Conjunctiva Clear ENT Exam: Normal ENT: Positive: Normal ENT inspection, Hearing grossly normal, Pharynx normal, TMs normal, Uvula midline. Negative: Nasal congestion, Nasal drainage, Tonsillar swelling, Tonsillar exudate, Trismus, Muffled voice, Hoarse voice, Dental tenderness, Sinus tenderness Dental Exam: Normal Neck exam: Normal Neck: Positive: Supple, Nontender, No Lymphadenopathy Respiratory Exam: Normal Respiratory: Positive: Chest non-tender, Lungs clear, Normal breath sounds, No respiratory distress, No accessory muscle use Cardiovascular Exam: Normal Cardiovascular: Positive: RRR, No Murmur, Pulses Normal, Brisk Capillary Refill Musculoskeletal Exam: Normal Musculoskeletal: Positive: Strength Intact, ROM Intact, No Edema Neurological Exam: Normal Neurological: Positive: Alert, Muscle Tone Normal Psychological Exam: Normal Skin Exam: Normal UC Diagnostic Evaluation - Laboratory O2 Sat by Pulse Oximetry: 99 Diagnostic Studies Comment: Influenza A/B (-) Strep A (-) Respiratory Course/Dx - Course Course Of Treatment: Albuterol, otc medications may start antibiodic should symptoms worsen or fail to improve - Differential Dx/Diagnosis Provider Diagnoses: Acute Bronchitis Discharge - Discharge Plan Condition: Stable Disposition: HOME Prescriptions: Albuterol HFA INHALER* [Ventolin HFA Inhaler*] 2 puff INH Q4H PRN #1 mdi PRN Reason: Cough and chest tightness Azithromycin TAB* [Zithromax TAB (Z-ENOC) 250 mg #6 tabs] 2 tab PO .TODAY, THEN 1 DAILY #1 enoc Patient Education Materials: Acute Bronchitis (ED) Referrals: [facility] [Outside] - If Needed
[2017-12-16] MEDS: Albuterol/Ipratropium NEB.SOL* Albuterol 2.5 MG/Ipratropium 0.5 MG 3 ML INH ONE (13:26)
[2017-12-16 13:48] VITALS: BP 144/87
== END 2017-12-16 14:16 | disposition home or self-care (01) ==
LOC: UCEAST 11:21
DX: J20.9 Acute bronchitis, unspecified (principal); Z87.891 Personal history of nicotine dependence
CPT/HCPCS: 87502; 87651; 99212; A9270-GY; G0463

== ENCOUNTER 2018-11-10 17:47 | Emergency (ER) | payer BC, OTHER ==
[2018-11-10 18:01] VITALS: BP 159/97
--- NOTE | 2018-11-10 18:32 | UC ---
Respiratory Complaint HPI - HPI Summary HPI Summary: 23-year-old woman comes in with a chief complaint of upper respiratory tract infection symptoms for 1-1/2 weeks. Started more with runny nose but that improved down into her chest. No recent fevers. She did have some wheezing. Feels like infection is primarily in her chest. His reminds her of when she's had a bronchitis last year the chin into a pneumonia. - History of Current Complaint Chief Complaint: UCRespiratory Stated Complaint: RESP Time Seen by Provider: 11/10/18 18:25 Hx Last Menstrual Period: 10/28/18 Pain Intensity: 0 - Allergies/Home Medications Allergies/Adverse Reactions: Allergies Allergy/AdvReac Type Severity Reaction Status Date / Time amoxicillin Allergy Hives Verified 11/10/18 18:01 PMH/Surg Hx/FS Hx/Imm Hx Previously Healthy: Yes - Surgical History Surgical History: Yes Surgery Procedure, Year, and Place: gallbladder Nov 2014 - Family History Known Family History: Positive: Hypertension Negative: Blood Disorder, Other - NEG: blood clots - Social History Alcohol Use: Rare Alcohol Amount: on Substance Use Type: None Smoking Status (MU): Never Smoked Tobacco Type: Cigarettes Amount Used/How Often: Smokes couples of time throughout week Have You Smoked in the Last Year: No When Did the Patient Quit Smoking/Using Tobacco: "years ago" Household Exposure Type: Cigarettes - Immunization History Most Recent Influenza Vaccination: 08/2015 Most Recent Tetanus Shot: 08/20/15 Most Recent Pneumonia Vaccination: n/a Review of Systems All Other Systems Reviewed And Are Negative: Yes Constitutional: Positive: Negative Skin: Positive: Negative Eyes: Positive: Negative ENT: Positive: Sore Throat, Nasal Discharge, Sinus Congestion Respiratory: Positive: Cough, Other - WHEEZING Cardiovascular: Positive: Negative Gastrointestinal: Positive: Negative Motor: Positive: Negative Neurovascular: Positive: Negative Musculoskeletal: Positive: Negative Neurological: Positive: Negative Psychological: Positive: Negative Is Patient Immunocompromised?: No Physical Exam Triage Information Reviewed: Yes Appearance: Well-Appearing, No Pain Distress, Well-Nourished Vital Signs: Initial Vital Signs Temp 97.9 F 11/10/18 17:58 Pulse 97 11/10/18 17:58 Resp 16 11/10/18 17:58 BP 159/97 11/10/18 17:58 Pulse Ox 100 11/10/18 17:58 Vital Signs Reviewed: Yes Eye Exam: Normal Eyes: Positive: Conjunctiva Clear ENT: Positive: Pharyngeal erythema, Nasal congestion, TMs normal Neck exam: Normal Neck: Positive: Supple Respiratory: Positive: Lungs clear, Normal breath sounds, No respiratory distress Cardiovascular: Positive: RRR Musculoskeletal Exam: Normal Musculoskeletal: Positive: Strength Intact, ROM Intact Neurological Exam: Normal Neurological: Positive: Alert, Muscle Tone Normal Psychological Exam: Normal Psychological: Positive: Age Appropriate Behavior Skin Exam: Normal UC Diagnostic Evaluation - Laboratory O2 Sat by Pulse Oximetry: 100 Respiratory Course/Dx - Differential Dx/Diagnosis Provider Diagnosis: Bronchitis with bronchospasm Discharge - Sign-Out/Discharge Documenting (check all that apply): Patient Departure All imaging exams completed and their final reports reviewed: No Studies - Discharge Plan Condition: Stable Disposition: HOME Prescriptions: Albuterol HFA INHALER* [Ventolin HFA Inhaler*] 2 puff INH Q4H PRN #1 mdi PRN Reason: Wheezing Azithromyxin ENOC (NF) [Z-Enoc (Zithromax) 250 mg tabs #6] 2 tab PO .TODAY, THEN 1 DAILY #6 tab Patient Education Materials: Acute Bronchitis (ED), Bronchospasm (ED) Referrals: [facility] [place] [Outside] Additional Instructions: FOLLOW UP WITH YOUR DOCTOR IF NOT COMPLETELY IMPROVED. GET RECHECKED FOR ANY WORSENING OF YOUR CONDITION OR QUESTIONS OR CONCERNS. - Billing Disposition and Condition Condition: STABLE Disposition: Home
== END 2018-11-10 18:38 | disposition home or self-care (01) ==
LOC: UCEAST 17:47
DX: J20.9 Acute bronchitis, unspecified (principal); Z88.0 Allergy status to penicillin; Z87.891 Personal history of nicotine dependence
CPT/HCPCS: 99212; G0463

== ENCOUNTER 2019-04-24 23:26 | Emergency (ER) | payer SELFPAY ==
--- NOTE | 2019-04-24 23:50 | ED ---
GI/ HPI - HPI Summary HPI Summary: Patient is a 23 y/o F presenting to ED with complaints of abdominal/vaginal cramping. She states that she is 5 weeks , stating she had confirmed this using home tests. Patient has two kids already. She states that Sx onset this evening. Patient reports that cramping was initially located at her abdominal area but migrated to her vaginal area later. Urinary Sx are denied. On triage, pain is rated 6/10, nothing is noted to aggravate/alleviate Sx. Home medications and allergies are reviewed. - History of Current Complaint Chief Complaint: EDOBProblems Time Seen by Provider: 04/24/19 23:35 Stated Complaint: , ABD/VAGINAL PAIN PER PT Hx Obtained From: Patient Hx Last Menstrual Period: 10/28/18 Onset/Duration: Started Hours Ago, Still Present Timing: Constant, Lasting Hours Severity: Moderate Current Severity: Moderate Pain Intensity: 6 Pain Characteristics: Cramping Associated Signs and Symptoms: Negative: UTI Symptoms Aggravating Factor(s): Nothing Alleviating Factor(s): Nothing - Allergy/Home Medications Allergies/Adverse Reactions: Allergies Allergy/AdvReac Type Severity Reaction Status Date / Time amoxicillin Allergy Hives Verified 04/24/19 23:29 PMH/Surg Hx/FS Hx/Imm Hx Cardiovascular History: Reports: Hx Hypertension - GESTATIONAL, Other Cardiovascular Problems/Disorders - Gestation HTN during delivered in Jul 2014 GI History: Reports: Hx Gall Bladder Disease - Began after , Other GI Disorders - Current gallstone pancreatitis History: Denies: Hx Kidney Stones Musculoskeletal History: Reports: Hx Back Problems - After Jul 2014 Denies: Hx Scoliosis Sensory History: Reports: Hx Contacts or Glasses - Uses glasses when driving Denies: Hx Hearing Aid Opthamlomology History: Reports: Hx Contacts or Glasses - Uses glasses when driving Neurological History: Denies: Hx Headaches, Other Neuro Impairments/Disorders - Surgical History Surgery Procedure, Year, and Place: gallbladder Nov 2014 Infectious Disease History: No Infectious Disease History: Denies: Hx Clostridium Difficile, Hx Hepatitis, Hx Human Immunodeficiency Virus (HIV), Hx of Known/Suspected MRSA, Hx Shingles, Hx Tuberculosis, Hx Known/ Suspected VRE, Hx Known/Suspected VRSA, History Other Infectious Disease, Traveled Outside the [place] in Last 30 Days - Family History Known Family History: Positive: Hypertension Negative: Blood Disorder - NEG: blood clots - Social History Alcohol Use: Rare Alcohol Amount: on Hx Substance Use: No Substance Use Type: Reports: None Hx Tobacco Use: No Smoking Status (MU): Never Smoked Tobacco Type: Cigarettes Amount Used/How Often: Smokes couples of time throughout week Have You Smoked in the Last Year: No Review of Systems Gastrointestinal: Other - positive - abodminal cramping Genitourinary: Other - positive - vaginal cramping Positive: no symptoms reported - URINARY All Other Systems Reviewed And Are Negative: Yes Physical Exam - Summary Physical Exam Summary: VITAL SIGNS: Reviewed. GENERAL: Patient is a well-developed and nourished female who is lying comfortable in the stretcher. Patient is not in any acute respiratory distress. HEAD AND FACE: No signs of trauma. No ecchymosis, hematomas or skull depressions. No sinus tenderness. EYES: PERRLA, EOMI x 2, No injected conjunctiva, no nystagmus. EARS: Hearing grossly intact. Ear canals and tympanic membranes are within normal limits. MOUTH: Oropharynx within normal limits. NECK: Supple, trachea is midline, no adenopathy, no JVD, no carotid bruit, no c- spine tenderness, neck with full ROM CHEST: Symmetric, no tenderness at palpation LUNGS: Clear to auscultation bilaterally. No wheezing or crackles. CVS: Regular rate and rhythm, S1 and S2 present, no murmurs or gallops appreciated. ABDOMEN: Soft, suprapubic tenderness. No signs of distention. No rebound no guarding, and no masses palpated. Bowel sounds are normal. EXTREMITIES: FROM in all major joints, no edema, no cyanosis or clubbing. NEURO: Alert and oriented x 3. No acute neurological deficits. Speech is normal and follows commands. SKIN: Dry and warm Triage Information Reviewed: Yes Vital Signs On Initial Exam: Initial Vitals Temp Pulse Resp BP Pulse Ox 98.7 F 102 15 127/67 97 04/24/19 23:28 04/24/19 23:28 04/24/19 23:28 04/24/19 23:28 04/24/19 23:28 Vital Signs Reviewed: Yes Diagnostics - Vital Signs Vital Signs Temp Pulse Resp BP Pulse Ox 04/24/19 23:28 98.7 F 102 15 127/67 97 - Laboratory Result Diagrams: 04/25/19 23:52 04/24/19 23:44 Lab Statement: Any lab studies that have been ordered have been reviewed, and results considered in the medical decision making process. - Ultrasound No standard instances Ultrasound Interpretation Completed By: Radiologist Summary of Ultrasound Findings: TRANSVAGINAL US IMPRESSION: Single live intrauterine gestation at 6 weeks and 1 day. THIS REPORT WAS REVIEWED BY DR. PURVIS. Re-Evaluation - Re-Evaluation First Eval Re-Evaluation Time: 01:55 Comment: Results of labs and tests were discussed with the patient. Patient will be discharged to home with Marcobid prescription and follow up with PCP and OBGYN. Strict return precautions were given. Patient is agreeable with this plan. GIGU Course/Dx - Course Course Of Treatment: Patient is a 23 y/o F presenting to ED with complaints of abdominal/vaginal cramping. She states that she is 5 weeks , stating she had confirmed this using home tests. Patient has two kids already. She states that Sx onset this evening. Patient reports that cramping was initially located at her abdominal area but migrated to her vaginal area later. Urinary Sx are denied. On physical exam, mild suprapubic tenderness is noted. Labs showed glucose 125, Beta HCG 7239. UA showed trace ketones, 1+ leukocyte esterase, trace WBC, 1+ RBC, squamous epith cells present, 1+ bacteria , ascorbic acid present. TRANSVAGINAL US IMPRESSION: Single live intrauterine gestation at 6 weeks and 1 day. During ED course, patient received Macrodantin 100 mg. Results of labs and tests were discussed with the patient. Patient will be discharged to home with Marcobid prescription and follow up with PCP and OBGYN. Strict return precautions were given. Patient is agreeable with this plan. - Diagnoses Provider Diagnoses: Intrauterine , UTI (urinary tract infection) Discharge - Sign-Out/Discharge Documenting (check all that apply): Patient Departure - discharge Patient Received Moderate/Deep Sedation with Procedure: No - Discharge Plan Condition: Stable Disposition: HOME Prescriptions: Nitrofurantoin Monohyd/M-Cryst [Macrobid 100 mg Capsule] 100 mg PO BID #14 cap Patient Education Materials: Urinary Tract Infection in Women (ED), ( ED) Referrals: Malcolm Yañez MD [Medical Doctor] - 3 Days [facility] [place] [facility] [Outside] - 3 Days Care [facility] [Outside] - 3 Days Additional Instructions: PLEASE RETURN TO THE ED IMMEDIATELY FOR WORSENING OR CONCERNING SYMPTOMS. FOLLOW UP WITH YOUR PRIMARY CARE PHYSICIAN AND OBGYN WITHIN THREE DAYS. - Attestation Statements Document Initiated by Scribe: Yes Documenting Scribe: SAMPSON PENALOZA Provider For Whom Scribe is Documenting (Include Credential): BI PURVIS MD Scribe Attestation: I, SAMPSON PENALOZA, scribed for BI PURVIS MD on 04/25/19 at 0322. Status of Scribe Document: Ready
[2019-04-25 00:28] LABS: Albumin 4.3 g/dL (3.2-5.2); Albumin/Globulin Ratio 1.6 (1-3); BUN/Creatinine Ratio 14.3 (8-20); Calcium 9.2 mg/dL (8.6-10.3); EGFR African American 123.4 (>60); Globulin 2.7 g/dL (2-4); Potassium 3.7 mmol/L (3.5-5.0); Total Bilirubin 0.5 mg/dL (0.2-1.0)
[2019-04-25 00:57] LABS: ABS Eosinophils 0.2 10^3/ul (0-0.6); ABS Lymphocytes 2.4 10^3/ul (1.0-4.8); ABS Monocytes 0.5 10^3/ul (0-0.8); ABS Neutrophils 6.1 10^3/ul (1.5-7.7); Eosinophil % 1.7 %; Hematocrit 40 % (35-47); Hemoglobin 13.8 g/dL (12.0-16.0); Mean Corpuscular HGB Conc 35 g/dL (31-36); Mean Corpuscular Hemoglobin 29 pg (27-31); Mean Corpuscular Volume 85 fL (80-97); Mean Platelet Volume 9.8 fL (7.4-10.4); Nucleated Red Blood Cells % 0.1; Platelet Count 159 10^3/uL (150-450); Red Blood Count 4.72 10^6 /uL (3.70-4.87); Red Cell Distribution Width 14 % (10-15); White Blood Count 9.2 10^3/uL (3.5-10.8)
[2019-04-25 01:15] LABS: Urine Appearance Cloudy; Urine Bacteria 1+ (Absent); Urine Bilirubin Negative (Negative); Urine Blood Negative (Negative); Urine Color Yellow; Urine Glucose Negative (Negative); Urine Ketones Trace (Negative); Urine Nitrite Negative (Negative); Urine Protein Negative (Negative); Urine Red Blood Cell 1+(3-5/hpf) (Absent); Urine Specific Gravity 1.027 (1.010-1.030); Urine Squamous Epithelial Cell Present (Absent); Urine Urobilinogen Negative (Negative); Urine White Blood Cell Trace(0-5/hpf) (Absent)
[2019-04-25] MEDS ORDERED: Nitrofurantoin Macrocrystals* 100 MG CAP PO ONE (01:47)
[2019-04-25 02:03] VITALS: BP 117/64
--- NOTE | 2019-04-27 06:28 | PN ---
Progress Note - Progress Note Date of Service: 04/27/19 Note: Patient urine culture grew strep group B 1 to 10,000. Patient placed on Macrobid which should be sensitive to.
== END 2019-04-25 02:03 | disposition home or self-care (01) ==
LOC: ED 23:26
DX: O23.41 Unspecified infection of urinary tract in pregnancy, first trimester (principal); R10.9 Unspecified abdominal pain; Z88.0 Allergy status to penicillin; Z3A.01 Less than 8 weeks gestation of pregnancy
CPT/HCPCS: 36415; 76817; 80053; 81003; 81015; 84702; 85025; 86850; 86900; 86901; 87077; 87086; 99283; A9270-GY

== ENCOUNTER 2019-06-13 12:25 | Emergency (ER) | payer BC ==
[2019-06-13 12:32] VITALS: BP 140/81
--- NOTE | 2019-06-13 12:36 | UC ---
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 Tet utd. No distal p/d/w. Oozing, but controllable with pressure. - History Of Current Complaint Chief Complaint: UCLaceration Stated Complaint: FINGER LAC Time Seen by Provider: 06/13/19 12:35 Hx Obtained From: Patient Hx Last Menstrual Period: 10/28/18 Pain Intensity: 4 - Allergies/Home Medications Allergies/Adverse Reactions: Allergies Allergy/AdvReac Type Severity Reaction Status Date / Time amoxicillin Allergy Hives Verified 06/13/19 12:33 Home Medications: Home Medications 95/Iron Fum/Folic/Dha [ + Dha Combo Pack] 1 tab PO DAILY [History Confirmed 06/13/19] PMH/Surg Hx/FS Hx/Imm Hx Previously Healthy: Yes - Surgical History Surgical History: Yes Surgery Procedure, Year, and Place: gallbladder Nov 2014 - Family History Known Family History: Positive: Hypertension Negative: Blood Disorder - NEG: blood clots - Social History Alcohol Use: None Alcohol Amount: on Substance Use Type: None Smoking Status (MU): Never Smoked Tobacco Type: Cigarettes Amount Used/How Often: Smokes couples of time throughout week Have You Smoked in the Last Year: No When Did the Patient Quit Smoking/Using Tobacco: "years ago" Household Exposure Type: Cigarettes - Immunization History Most Recent Influenza Vaccination: 08/2015 Most Recent Tetanus Shot: 08/20/15 Most Recent Pneumonia Vaccination: n/a Review of Systems All Other Systems Reviewed And Are Negative: Yes Constitutional: Positive: Negative Skin: Positive: Other - see hpi Eyes: Positive: Negative ENT: Positive: Negative Respiratory: Positive: Negative Cardiovascular: Positive: Negative Gastrointestinal: Positive: Negative Genitourinary: Positive: Negative Motor: Positive: Other - see hpi Neurovascular: Positive: Other - see hpi Musculoskeletal: Positive: Other: Neurological: Positive: Other - see hpi Psychological: Positive: Negative Is Patient Immunocompromised?: No Physical Exam Triage Information Reviewed: Yes Appearance: Well-Appearing, Well-Nourished Vital Signs: Initial Vital Signs Temp 98.6 F 06/13/19 12:29 Pulse 82 06/13/19 12:29 Resp 18 06/13/19 12:29 BP 140/81 06/13/19 12:29 Pulse Ox 100 06/13/19 12:29 Vital Signs Reviewed: Yes Eye Exam: Normal - grossly nonfocal ENT Exam: Normal - grossly nonfocal Neck exam: Normal - no c/o Respiratory Exam: Normal - RR normal, no dyspnea Cardiovascular Exam: Normal - HR normal Abdominal Exam: Normal - no c/o Musculoskeletal Exam: Other - see skin o/w nad Neurological Exam: Normal - grossly nonfocal Psychological Exam: Normal Skin Exam: Normal - no visible or reported rash see MDM Laceration Course/Dx - Course/Dx Course Of Treatment: L index finger avulsion lac distal pip medial full thickness through dermis. 0.6cmW x 2.1cmL. + oozing, improved. Lidocaine 2% 5ml applied topically for pain relief during coarse of examination , wound cleansing, and dressing application. Gelfoam applied (by myself, after wound cleansing), followed by anastacio / socorro chaves. Reviewed wound care and f/u. Questions as posed answered to the best of my ability. - Diagnosis Provider Diagnosis: Laceration Discharge - Sign-Out/Discharge Documenting (check all that apply): Patient Departure All imaging exams completed and their final reports reviewed: No Studies - Discharge Plan Condition: Stable Disposition: HOME Patient Education Materials: Skin Avulsion (ED), Laceration Without Closure (ED ) Forms: *Work Release Referrals: No Primary Care Phys,NOPCP [Primary Care Provider] - Additional Instructions: Please follow up here or with your doctor in 48 - 72 hours for recheck. Keep dressing on until then, if possible. At least 24 hours is recommended. Elevate as possible. Once dressing has been removed: Bacitracin (not neosporin) thin layer once daily, overlie guaze / tape. NO TELFA If you use an over the the counter bandaid, use a loose fitting clothe bandaid. Avoid astringents (ie no rubbing alcohol, no hydrogen peroxide). Ok to shower when dressing removed, mild white soap recommended. Once scab is removed, please makes sure that prolonged direct sun exposure is minimized (sunscreen etc). - Billing Disposition and Condition Condition: STABLE Disposition: Home
[2019-06-13] MEDS ORDERED: Lidocaine 2% PF * 5 ML VIAL INJ ONE (12:38)
[2019-06-13] MEDS ORDERED: Gelfoam 12-7 ADSORBABL SPONGE* 1 EA SPONGE TOPICAL ONE (13:00)
== END 2019-06-13 13:35 | disposition home or self-care (01) ==
LOC: UCEAST 12:25
DX: S61.211A Laceration without foreign body of left index finger without damage to nail, initial encounter (principal); W26.0XXA Contact with knife, initial encounter; Y93.G3 Activity, cooking and baking; Y92.010 Kitchen of single-family (private) house as the place of occurrence of the external cause; Y99.8 Other external cause status
CPT/HCPCS: 12001; 99211; A9270-GY; G0463

== ENCOUNTER 2019-07-19 16:58 | Emergency (ER) | payer BC ==
[2019-07-19 17:30] VITALS: BP 148/83
--- NOTE | 2019-07-19 17:30 | UC ---
Skin Complaint HPI - HPI Summary HPI Summary: 24-year-old female who is 18-1/2 weeks gestation with her third . She started experiencing one larger circular rash on her left breast approximately one week ago. Since then she has developed more similar areas that are smaller. Mildly itchy. She showed this to her cost report clerk who did not think it was ringworm and told her to observe for worsening symptoms. Denies any difficulty breathing or wheezing. Has not been applying any medication. - History of Current Complaint Chief Complaint: UCSkin Time Seen by Provider: 07/19/19 17:17 Stated Complaint: 18 1/2 WKS . SUDDEN RASH Hx Obtained From: Patient Hx Last Menstrual Period: 18 WEEKS ?: Yes Onset/Duration: Gradual Onset, Lasting Days Skin Exposure Onset/Duration: Worse Since: - Worse over the past 24 hours. Timing: Constant Onset Severity: Mild Current Severity: Moderate Pain Intensity: 0 Location: Other - Both breasts, chest, upper abdomen and upper back. Character: Pruritus - Mild itching. Aggravating Factor(s): Nothing Alleviating Factor(s): Nothing Associated Signs & Symptoms: Positive: Rash - Patient had a larger rash to begin with on the left breast. - Allergy/Home Medications Allergies/Adverse Reactions: Allergies Allergy/AdvReac Type Severity Reaction Status Date / Time amoxicillin Allergy Hives Verified 07/19/19 17:25 Home Medications: Home Medications Docosahexanoic Acid [Dha Walsh 3] 100 mg PO DAILY 07/19/19 [History Confirmed ] PMH/Surg Hx/FS Hx/Imm Hx Previously Healthy: Yes Cardiovascular History: Hypertension - Patient states she has had problems in the past with gestational hypertension. - Surgical History Surgical History: Yes Surgery Procedure, Year, and Place: gallbladder Nov 2014 - Family History Known Family History: Positive: Hypertension Negative: Blood Disorder - NEG: blood clots - Social History Lives: With Family Alcohol Use: None Alcohol Amount: on Substance Use Type: None Smoking Status (MU): Never Smoked Tobacco Type: Cigarettes Amount Used/How Often: Smokes couples of time throughout week Have You Smoked in the Last Year: No When Did the Patient Quit Smoking/Using Tobacco: "years ago" Household Exposure Type: Cigarettes - Immunization History Most Recent Influenza Vaccination: 08/2015 Most Recent Tetanus Shot: 08/20/15 Most Recent Pneumonia Vaccination: n/a Review of Systems All Other Systems Reviewed And Are Negative: Yes Skin: Positive: Rash - Rash on chest left breast underneath breasts upper abdomen and upper back Is Patient Immunocompromised?: No Physical Exam Triage Information Reviewed: Yes Appearance: Well-Appearing, No Pain Distress, Well-Nourished Vital Signs: Initial Vital Signs Temp 98.3 F 07/19/19 17:26 Pulse 83 07/19/19 17:26 Resp 18 07/19/19 17:26 BP 148/83 07/19/19 17:26 Pulse Ox 98 07/19/19 17:26 Vital Signs Reviewed: Yes Eyes: Positive: Conjunctiva Clear Respiratory: Positive: Lungs clear, Normal breath sounds, No respiratory distress, No accessory muscle use Cardiovascular: Positive: RRR, No Murmur, Pulses Normal, Brisk Capillary Refill Musculoskeletal Exam: Normal Neurological Exam: Normal Psychological Exam: Normal Skin: Positive: Rashes - Patient has what up appears to be a herald patch on her left breast which is irregularly shaped with dried edges. The other rashes on her rest upper abdomen upper back are similar but smaller. No secondary skin infection. Course/Dx - Course Course Of Treatment: Patient is comfortable here. She is to increase fluids and may take Benadryl as directed. - Diagnoses Provider Diagnosis: Pityriasis rosea Discharge ED - Sign-Out/Discharge Documenting (check all that apply): Patient Departure All imaging exams completed and their final reports reviewed: No Studies - Discharge Plan Condition: Good Disposition: HOME Patient Education Materials: Pityriasis rosea (ED) Referrals: [facility] [Outside] No Primary Care Phys,NOPCP [Primary Care Provider] - Additional Instructions: Avoid scratching the areas, may take Benadryl as directed for itching. Increase fluids. Follow up with the [facility] or your primary care provider if any worsening symptoms or any further concerns. Go to the emergency room if you develop any difficulty breathing, wheezing, facial swelling or throat closing. - Billing Disposition and Condition Condition: GOOD Disposition: Home - Attestation Statements Provider Attestation: This patient was not seen by me. I was available for consult.[email or web address]
== END 2019-07-19 17:37 | disposition home or self-care (01) ==
LOC: UCEAST 16:58
DX: O26.892 Other specified pregnancy related conditions, second trimester (principal); L42 Pityriasis rosea; O10.912 Unspecified pre-existing hypertension complicating pregnancy, second trimester; Z3A.18 18 weeks gestation of pregnancy
CPT/HCPCS: 99212; G0463

== ENCOUNTER 2019-12-14 08:23 | Inpatient (IN) | payer OTHER ==
[2019-12-14] MEDS ORDERED: Lactated Ringers 1000 ML Bag* 1,000 ML IV ONE ×2 (10:08→19:28)
[2019-12-14] MEDS ORDERED: Buffered Lidocaine 1% SYRIN* 1 ML/SYRINGE INTRADERM ONE (10:08)
--- NOTE | 2019-12-14 10:22 | HP ---
General Information - Reason for Visit Here for IND at 39wks due to CHTN - General Information Maternal Age: 24 Grav: 3 Para: 2 SAB: 0 IEA: 0 Estimated Due Date: 12/21/19 Determined By: LMP Gestational Age in Weeks/Days: 39 Maternal Blood Type and Rh: A Positive - Results this Serology/RPR Result: Non-Reactive Rubella Result: Immune HBsAg Result: Negative HIV Result: Negative GBS Culture Result: Negative Past Medical History Delivery History: Hx Uncomplicated Vaginal Delivery Pertinent Past Medical History: See Records Past Medical History Comment: CHTN - developed around 20wks of . No meds. BPs have remained mildly elevated Pertinent Past Surgical History: None Pertinent Family History: Non-Contributory - Antepartal Records Antepartal Records: Reviewed, Complicated by: - CHTN Review of Systems Constitutional: Comfortable CV Complaint: No Respiratory: Shortness of Breath: No Gastrointestinal: Nausea - minimal nausea - she thinks its nerves. No vomiting Genitourinary: No Dysuria, No Bleeding, No Leaking Fluid Musculoskeletal: No Complaint Neurological: No Headache, No Visual Changes Movement: Normal Exam Allergies/Adverse Reactions: Allergies amoxicillin Allergy (Verified 07/19/19 17:25) Hives - Measurements Height: 5 ft 8 in Weight: 254 lb Weight in lbs: [phone] Body Mass Index (BMI): 38.6 Pre- Weight: 260 lb Weight Gained This : -6 lbs and 0 ozs - Exam Breast: Breast Exam Deferred Extremities: No Edema Heart: Normal Rhythm/Heart Sounds HEENT: No Significant Findings Rectal: Rectal Exam Deferred Reflexes: DTR 2+ - Abdominal Exam Abdomen Exam: Non-Tender - Ultrasound/Biophysical Profile Ultrasound Status: Bedside Exam - vtx Targeted Exam Findings Cervical Exam: 1cm, 2cm Effacement: 50% Station: -3 Presenting Part: Vertex Membrane Status: Intact EFM Findings - External Monitor Findings Baseline Heart Rate: 150 External Monitor Findings: Accelerations Present, No Pattern of Variable or Late Decelerations, Variability Moderate, Baseline Stable Contractions: None Assessment/Plan - Assessment @39wks for IND due to CHTN diagnosis at 20wks. Obesity though has gain essentially no weight during the . - Obstetrical Risk Factors Obstetrical Risk Factors: Obesity, Chronic Hypertension - Plan Plan: Induction
[2019-12-14] MEDS ORDERED: Lactated Ringers 1000 ML Bag* 1,000 ML IV SCH ×3 (11:00→22:00)
[2019-12-14] MEDS ORDERED: Oxytocin in LR* 20 UNITS/1,000 ML BAG IVPB SCH (11:00)
[2019-12-14 11:02] LABS: ABS Eosinophils 0.1 10^3/ul (0-0.6); ABS Lymphocytes 1.3 10^3/ul (1.0-4.8); ABS Monocytes 0.4 10^3/ul (0-0.8); ABS Neutrophils 6.3 10^3/ul (1.5-7.7); Eosinophil % 1.5 %; Hematocrit 39 % (35-47); Hemoglobin 13.2 g/dL (12.0-16.0); Lymphocyte % 16.4 %; Mean Corpuscular HGB Conc 34 g/dL (31-36); Mean Corpuscular Hemoglobin 28 pg (27-31); Mean Corpuscular Volume 82 fL (80-97); Mean Platelet Volume 9.7 fL (7.4-10.4); Nucleated Red Blood Cells % 0.1; Platelet Count 140 10^3/uL (150-450); Red Cell Distribution Width 14 % (10-15); White Blood Count 8.2 10^3/uL (3.5-10.8)
[2019-12-14 11:07] LABS: Urine Benzodiazepine Screen None Detected (None Detect); Urine Opiates Screen None Detected (None Detect)
[2019-12-14] MEDS ORDERED: OBEPIDURAL* 250 ML EPIDURAL ONE (18:23)
[2019-12-14] MEDS ORDERED: EPHEDrine (Pressors)* 50 MG/ML VIAL IV PUSH PRN ×2 (19:28)
[2019-12-14] MEDS ORDERED: Phenylephrine 40 MCG/ML SYRINGE IV PUSH PRN (19:28)
[2019-12-14] MEDS ORDERED: Sodium Citrate/Citric Acid* 15 ML UDC PO PRN (19:28)
[2019-12-14] MEDS ORDERED: Famotidine TAB* 20 MG PO PRN (19:28)
[2019-12-14] MEDS: Phenylephrine 40 MCG/ML SYRINGE IV PUSH PRN ×3 (19:32→19:52)
[2019-12-14] MEDS ORDERED: OBEPIDURAL* 250 ML EPIDURAL SCH (20:00)
[2019-12-14] MEDS ORDERED: Glycerin ADULT SUPP PR PRN (21:19)
[2019-12-14] MEDS ORDERED: Acetaminophen TAB* 325 MG PO PRN (21:19)
--- NOTE | 2019-12-14 21:32 | PROCNOTE ---
[facility] OB: Delivery Note - Delivery A Date of : 12/14/19 Time of : 21:03 Weight at : 7 lb 8 oz Score 1 Minute: 9 Score 5 Minutes: 9 Gestational Age in Weeks and Days at Delivery: 39 Weeks and 0 Days Delivery Method: Spontaneous Vaginal Labor: Induced Did Patient attempt ?: N/A, No Previous Amniotic Fluid: Clear Estimated Blood Loss: 200 Anesthesia/Analgesia: CEI for Labor - Nursery Level of Nursery: Regular/Bedside - Perineum Perineal Injury: None/Intact Perineal Repair: None - Events Delivery Events of Note: Pitocin During Labor - Additional Delivery Notes Additional Delivery Notes: Pt underwent induction of labor for CHTN. She was started on pitocin and underwent AROM. She recevied an epidural and progressed to fully dilated. She pushed 15min to deliver the 's head in LILY position followed quickly by the shoulders and the rest of the body. Baby was placed on mom's abdomen. After >1min the cord was clamped x2 and cut. The placenta delivered with gentle cord traction and fundal massage and appeared intact. No lacerations. Pitocin was started and fundus was massaged until firm and there was good hemostasis. Mom and baby stable at time of note.
[2019-12-14] MEDS: Ibuprofen TAB* 600 MG PO PRN (22:27)
[2019-12-14] MEDS: Witch Hazel PAD* JAR TOPICAL PRN (22:27)
[2019-12-14] MEDS: Dibucaine 1% 28.35 GM TUBE PR PRN (22:27)
[2019-12-15] MEDS: Dibucaine 1% 28.35 GM TUBE PR PRN ×2 (07:09→21:04)
[2019-12-15] MEDS: Ibuprofen TAB* 600 MG PO PRN ×3 (07:09→20:02)
[2019-12-15] MEDS ORDERED: Simethicone TAB* 80 MG TAB.CHEW PO SCH (08:30)
[2019-12-15] MEDS ORDERED: Ferrous Gluconate TAB* 324 MG TAB PO SCH (09:00)
[2019-12-15 09:23] LABS: ABS Eosinophils 0.1 10^3/ul (0-0.6); ABS Lymphocytes 1.7 10^3/ul (1.0-4.8); ABS Monocytes 0.4 10^3/ul (0-0.8); ABS Neutrophils 6.1 10^3/ul (1.5-7.7); Eosinophil % 1.5 %; Hematocrit 35 % (35-47); Hemoglobin 11.9 g/dL (12.0-16.0); Lymphocyte % 20.4 %; Mean Corpuscular HGB Conc 34 g/dL (31-36); Mean Corpuscular Hemoglobin 28 pg (27-31); Mean Corpuscular Volume 83 fL (80-97); Mean Platelet Volume 9.9 fL (7.4-10.4); Platelet Count 133 10^3/uL (150-450); Red Blood Count 4.17 10^6 /uL (3.70-4.87); Red Cell Distribution Width 14 % (10-15); White Blood Count 8.4 10^3/uL (3.5-10.8)
[2019-12-15] MEDS: Docusate CAP* 100 MG PO SCH ×3 (14:08→21:02)
[2019-12-15] MEDS: Witch Hazel PAD* JAR TOPICAL PRN (21:04)
[2019-12-16 08:16] VITALS: BP 129/73
[2019-12-16] MEDS: Docusate CAP* 100 MG PO SCH (08:52)
== END 2019-12-16 13:30 | disposition home or self-care (01) | DRG 560 ==
LOC: MCHOBOUT 08:23 → MCHOB 10:15
PROVIDERS: ADMIT Obstetrics & Gynecology; ATTEND Obstetrics & Gynecology
PROC: 10E0XZZ Delivery of Products of Conception, External Approach (ICD-10-PCS; principal; 2019-12-14)
PROC: 4A1HXCZ Monitoring of Products of Conception, Cardiac Rate, External Approach (ICD-10-PCS; 2019-12-14)
PROC: 10907ZC Drainage of Amniotic Fluid, Therapeutic from Products of Conception, Via Natural or Artificial Opening (ICD-10-PCS; 2019-12-14)
PROC: 3E033VJ Introduction of Other Hormone into Peripheral Vein, Percutaneous Approach (ICD-10-PCS; 2019-12-14)
DX: O10.92 Unspecified pre-existing hypertension complicating childbirth (principal); Z37.0 Single live birth; O99.214 Obesity complicating childbirth; Z3A.39 39 weeks gestation of pregnancy; Z88.0 Allergy status to penicillin
CPT/HCPCS: 36415; 80307; 85025; 86850; 86900; 86901; A9270-GY; G0480